=== PATIENT | male | born 1990 | race Caucasian/White ===

== ENCOUNTER 2018-10-20 17:13 | Emergency (ER) | payer OTHER, MEDICAID, SELFPAY ==
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
[2018-10-20 17:33] VITALS: BP 134/69; PULSE 78; RESP 20; TEMP 36.6; O2SAT 99; BMI 23.1
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
[2018-10-20] MEDS: ONDANSETRON 4 MG ODT SL (18:29)
[2018-10-20] MEDS: HYDROCODONE/ACET 5/325 TABLET 1 TAB PO (18:29)
[2018-10-20 19:12] VITALS: BP 110/64; PULSE 115; RESP 20; O2SAT 98
== END 2018-10-20 19:13 | disposition home or self-care (01) ==
PROVIDERS: Emergency Provider Emergency Medicine; PCP Family Medicine
DX: G89.18 Other acute postprocedural pain (principal)
CPT/HCPCS: 72170; 99282; 99283

== ENCOUNTER 2019-01-16 15:15 | Outpatient (RCR) | payer OTHER, MEDICAID, SELFPAY ==
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
== END 2019-01-24 07:55 | disposition home or self-care (01) ==
LOC: PHYS 15:15
PROVIDERS: PCP Family Medicine
DX: S32.810D Multiple fractures of pelvis with stable disruption of pelvic ring, subsequent encounter for fracture with routine healing (principal)
CPT/HCPCS: 97110; 97113; 97140; 97161